=== PATIENT | male | born 1935 | race Caucasian/White ===

== ENCOUNTER 2016-08-27 06:18 | Day surgery (SDC) | payer BC ==
--- NOTE | 2016-07-30 14:04 | HP ---
DATE OF ADMISSION: 08/27/2016 REASON FOR ADMISSION: Bilateral inguinal hernias. BRIEF HISTORY: This is an 81-year-old gentleman with known left inguinal hernia. He has had the left inguinal hernia for many years, but recently the hernia has gotten very large, and he has discomfort in the left groin region. He was evaluated by his primary care physician, Dr. Blankenship, who confirmed the hernia and referred him for further evaluation and surgical management. Patient states he has pain on the left groin and occasionally has some shooting discomfort in the right groin as well. He has had no nausea, no vomiting, no change in bowel habits. PAST MEDICAL HISTORY: Significant for hypercholesterolemia. He denies coronary artery disease, hypertension, diabetes. PAST SURGICAL HISTORY: None. MEDICATION: Allopurinol, atenolol, omeprazole, and vitamins. ALLERGIES: PENICILLIN. SOCIAL HISTORY: He does not smoke. Drinks socially. PHYSICAL EXAMINATION: Lungs: Clear. Heart: Regular rhythm. Abdomen: Obese. Soft. Nontender. Nondistended. He has upper midline diastasis. He has a large left inguinal hernia which is partially reducible in the supine position. Left scrotum and testicles within normal limits. On the right side he has a large amount of laxity, and I suspect he has a small right inguinal hernia as well. The right scrotum and testicle is within normal limits as well. IMPRESSION/PLAN: Bilateral inguinal hernias, left groin pain: This is an 81-year-old gentleman with a known left inguinal hernia. He has had this for many years and it has gotten fairly large now. He is more symptomatic and now wishes to have this repaired. On physical examination, I suspect he has a small right inguinal hernia as well. Patient will be scheduled for bilateral inguinal herniorrhaphy with mesh. At the time of surgery, the right side will be examined, and if I am correct and there is a hernia, it will be repaired in the same setting. If no hernia noted, a piece of mesh will be left in direct inguinal space for reinforcement. The indications, alternatives, complications of procedure discussed. We have specifically gone over the complications of a large postoperative left groin seroma/hematoma which may or may not resolve after surgery. He understands this and still wants to proceed. Patient lives [address] away from [facility]. Various hospital options have been proposed to this patient. Patient has opted to proceed with surgery at [facility] since it is convenient and he is a resident of [facility]. He does not wish to be done at any other hospital. Patient will be scheduled at [facility]. Sherice DAVID [id number] cc: Aleksandr Blankenship M.D. MTDD
[2016-08-19 14:38] VITALS: BMI 24.7
[2016-08-27] MEDS ORDERED: TAMSULOSIN HCL 0.4 MG CAP.ER.24H (FP) ONE (06:59)
[2016-08-27] MEDS ORDERED: PROPOFOL 20 ML ONE (08:45)
[2016-08-27] MEDS ORDERED: LIDOCAINE HCL/PF 2% SDV 5ML VIAL ONE (08:45)
[2016-08-27] MEDS ORDERED: ROCURONIUM BROMIDE 50 MG/5 ML VIAL ONE (08:46)
[2016-08-27] MEDS ORDERED: CLINDAMYCIN PHOSPHATE 600 MG/4 ML VIAL ONE (08:48)
[2016-08-27] MEDS ORDERED: ONDANSETRON 4 MG/2 ML VIAL ONE ×2 (08:49→10:14)
[2016-08-27] MEDS ORDERED: DEXAMETHASONE SOD PHOSPHATE 4 MG/1 ML VIAL ONE (08:49)
[2016-08-27] MEDS ORDERED: oxyCODONE HCL 5 MG TABLET PO PRN (09:04)
[2016-08-27] MEDS ORDERED: ONDANSETRON 4 MG/2 ML VIAL IVPUSH PRN (09:04)
[2016-08-27] MEDS ORDERED: LACTATED RINGERS SOLUTION 1,000 ML IV SCH (09:15)
[2016-08-27] MEDS ORDERED: NEOSTIGMINE METHYLSULFATE 0.5 MG/ML - 10 ML MDV ONE (09:23)
[2016-08-27] MEDS ORDERED: methylPREDNISolone NA SUCC 40 MG/1 ML VIAL ONE (10:01)
[2016-08-27 11:26] VITALS: TEMP 97.8
[2016-08-27] MEDS ORDERED: IBUPROFEN 600 MG TABLET (FP) PO ONE ×2 (11:44→12:03)
[2016-08-27 15:46] VITALS: BP 141/76; PULSE 70
--- NOTE | 2016-08-28 09:44 | OP ---
DATE OF OPERATION: 08/27/2016 PREOPERATIVE DIAGNOSES: Symptomatic left inguinal hernia, right inguinal hernia. POSTOPERATIVE DIAGNOSES: Incarcerated left inguinal hernia (direct component), right indirect inguinal hernia. PROCEDURE: Laparoscopic repair of incarcerated left inguinal hernia, laparoscopic repair of right inguinal hernia. SURGEON: Harsh Davenport MD [employer] CONSULTANT: Tiago Mondragon DO ANESTHESIA: Akbar Hammond MD (general). ESTIMATED BLOOD LOSS: Minimal. SPECIMEN: None. INDICATION FOR PROCEDURE: This is an 81-year-old gentleman with a very longstanding history of having a left inguinal hernia. The hernia has gotten larger, and now, he is very symptomatic from it and wished to have this repaired. On exam, he is also noted to have a right inguinal hernia. He is here today for repair of this hernia as well. DESCRIPTION OF PROCEDURE: Patient identified and appropriately positioned on the operating room table. He was placed under general anesthesia. The abdomen was prepped and draped in the usual sterile fashion with ChloraPrep. An infraumbilical incision was made and deepened through the subcutaneous tissue. The fascia of the rectus muscle on the left identified, divided sharply, and under direct vision, dissector balloon followed by structural balloon placed. Also, under direct vision, a suprapubic 11-mm port placed. The following structures on the left side identified: Pubic tubercle, Parker ligament, inferior epigastric vessels, spermatic cord, and lateral abdominal wall. During this dissection, the patient was noted to have an incarcerated direct hernia containing fat and a portion of what appeared to be small bowel. This sac reduced back in the preperitoneal space with blunt dissection. He also had a moderate-size indirect inguinal hernia sac that was reduced back in the preperitoneal space. A 4.5 x 6 piece of Versatex mesh was keel placed through the suprapubic port site. The mesh wrapped around the cord structures laterally to reconstruct the internal ring. Laterally, the mesh anchored to the anterior abdominal wall and lateral abdominal wall. Medially, the mesh anchored to the anterior abdominal wall, pubic tubercle and Parker ligament. Upon completion of the left side, similar structures on the right side were identified. On the right side, he was noted to have no direct component. He had significant attenuation of the direct inguinal floor. He had an indirect inguinal hernia that was reduced back into the preperitoneal space with blunt dissection. Another 4.5 x 6 piece of Versatex mesh was keel placed through the suprapubic port site. The mesh wrapped around the cord structures laterally to reconstruct the internal ring. Laterally, the mesh anchored to the anterior abdominal wall and lateral abdominal wall. Medially, the mesh was well overlapped in the midline, anchored to the anterior abdominal wall, pubic tubercle, and Parker ligament. The preperitoneal space was desufflated under direct vision. The operative field examined and noted to be hemostatic. Port sites hemostatic. The fascia at both port sites reapproximated with interrupted 0 Vicryl suture. All skin closed with 4-0 subcuticular Biosyn, followed by Dermabond. At the conclusion of this case, sponge and needle counts were correct. ATTESTATION: A brief operative note handwritten on the preprinted form. [facility] was queried, and the prescription was done electronically. Sherice DAVID [id number] cc: Aleksandr Blankenship MD
== END 2016-08-27 15:50 | disposition home or self-care (01) ==
LOC: FASU 06:18
PROVIDERS: ATTEND Surgery
PROC: 0YUA4JZ Supplement Bilateral Inguinal Region with Synthetic Substitute, Percutaneous Endoscopic Approach (ICD-10-PCS; principal; 2016-08-27 09:06)
DX: K40.30 Unilateral inguinal hernia, with obstruction, without gangrene, not specified as recurrent (principal); K40.90 Unilateral inguinal hernia, without obstruction or gangrene, not specified as recurrent
CPT/HCPCS: 94760

== ENCOUNTER 2020-03-01 14:55 | Emergency (ER) | payer BC ==
[2020-03-01 15:59] VITALS: BP 154/90; PULSE 70; TEMP 99.4; BMI 23.3
[2020-03-01 16:42] LABS: HEMATOCRIT 41.5 % (35.4-49); HEMOGLOBIN 14.2 GM/dl (11.7-16.9); MCH 32.5 pg (25.7-33.7); MCHC 34.3 g/dl (32.0-35.9); MEAN CELL VOLUME 94.7 fl (80-96); MEAN PLT VOLUME 7.1 fl (7.5-11.1); PLATELET COUNT 239 K/MM3 (134-434); RBC 4.39 M/mm3 (4.00-5.60); WHITE BLOOD COUNT 11.9 K/mm3 (4.0-10.8)
[2020-03-01 16:53] LABS: ALBUMIN 4.6 g/dl (3.4-5.0); BILIRUBIN,TOTAL 0.9 mg/dl (0.2-1); CALCIUM 10.1 mg/dl (8.5-10); CREATININE 1.4 mg/dl (0.55-1.3); MAGNESIUM 1.5 mg/dL (1.8-2.4); TOT PROT 7.2 g/dl (6.4-8.2)
[2020-03-01] MEDS ORDERED: MAGNESIUM SULF 50% (8.12 MEQ/2 ML-1 GM VIAL) IVPB ONE (17:30)
[2020-03-01 18:15] LABS: PLATELET ESTIMATE ADEQUATE
== END 2020-03-01 18:02 | disposition left against medical advice (07) ==
LOC: FER 14:55
PROC: 3E033GC Introduction of Other Therapeutic Substance into Peripheral Vein, Percutaneous Approach (ICD-10-PCS; principal; 2020-03-01)
DX: R55 Syncope and collapse (principal)
CPT/HCPCS: 36415; 70450-TC; 80053; 82550; 82553; 83735; 84484; 85025; 93005; 99285-25